=== PATIENT | male | born 1985 | race Caucasian/White ===

== ENCOUNTER 2017-01-24 01:03 | Emergency (ER) | payer BC ==
[~2017-01-24] VITALS: Ht 175.3 cm; Wt 73.6 kg
[~2017-01-24 01:03] MED LIST: BACT800T5 PO; CLIN150 PO
[2017-01-24 01:07] VITALS: BP 123/81; PULSE 65; RESP 14; TEMP 98.2; O2SAT 99
== END 2017-01-24 01:15 | disposition left against medical advice (07) ==
LOC: PHED 01:03
DX: R68.89 Other general symptoms and signs (principal)
CPT/HCPCS: 99281

== ENCOUNTER 2017-02-12 18:21 | Emergency (ER) | payer BC ==
[~2017-02-12] VITALS: Ht 175.3 cm; Wt 74.0 kg
[2017-02-12 18:28] VITALS: BP 121/87; PULSE 82; RESP 17; TEMP 98.8; O2SAT 100
[2017-02-12] MEDS ORDERED: GABA100C4 PO (18:40)
[2017-02-12] MEDS ORDERED: PROZ40CA PO (18:40)
[2017-02-12] MEDS ORDERED: CLIN1CAP6 PO (19:02)
--- NOTE | 2017-02-12 19:02 | PD ---
HPI Chief Complaint: Skin Problem Time Seen by Provider: 18:54 Travel History International Travel<30 days: No Contact w/Intl Traveler<30days: No Traveled to known affect area: No History of Present Illness HPI 32-year-old male presents emergency department for evaluation of left ankle redness and pain. Symptom onset 1 day. Patient denies injury. Patient denies fever, chills, nausea, vomiting. He reports only minimal pain at the site, nonradiating, no exacerbating or alleviating factors, severity 3 out of 10. Patient has a history of IV drug abuse. He did denies injecting at this location. He reports the symptoms are similar to cellulitis which she has had multiple times in the past. [facility] Past Medical History Anxiety: Yes Depression: Yes Cancer: No Cardiovascular Problems: No Diminished Hearing: No Endocrine: No Genitourinary: No Hepatitis: Yes (hep c) Immune Disorder: No Musculoskeletal: No Neurologic: No Psychiatric: Yes Reproductive: No Respiratory: No Tetanus Vaccination: < 5 Years Influenza Vaccination: Yes Past Surgical History Surgical History: No Previous Surgery Social History Alcohol Use: Yes (OCCASIONAL) Tobacco Use: No (dips and smokes occas.) Substance Use: Yes (hx of OPIATES- "[employer]S [employer]S" heroin use ) Allergies-Medications (Allergen,Severity, Reaction): Coded Allergies: No Known Allergies (Verified , 02/12/17) Reported Meds & Prescriptions Reported Meds & Active Scripts Active Reported Gabapentin 100 Mg Cap 100 Mg PO TID Prozac (Fluoxetine HCl) 40 Mg Cap 40 Mg PO DAILY Review of Systems Except as stated in HPI: all other systems reviewed are Neg General / Constitutional: No: Fever Cardiovascular: No: Chest Pain or Discomfort Respiratory: No: Shortness of Breath Gastrointestinal: No: Abdominal Pain Skin: Positive Other (erythema left lateral ankle and lower extremities) Physical Exam Narrative GENERAL: Well-nourished, well-developed patient. SKIN: Focused skin assessment warm/dry. Erythema to the lateral aspect of the left ankle HEAD: Normocephalic. EYES: No scleral icterus. No injection or drainage. NECK: Supple, trachea midline. No JVD or lymphadenopathy. CARDIOVASCULAR: Regular rate and rhythm without murmurs, gallops, or rubs. RESPIRATORY: Breath sounds equal bilaterally. No accessory muscle use. GASTROINTESTINAL: Abdomen soft, non-tender, nondistended. MUSCULOSKELETAL: No cyanosis, or edema. Left ankle: Erythema noted to the lateral aspect. No induration or fluctuance. No evidence of a wound for IV drug use at the site. Mild amount of soft tissue swelling. No lymphangitis. No joint swelling. Painless range of motion of the ankle. BACK: Nontender without obvious deformity. No CVA tenderness. Data Data Last Documented VS Vital Signs Date Time Temp Pulse Resp B/P Pulse Ox O2 Delivery O2 Flow Rate FiO2 02/12/17 18:28 98.8 82 17 121/87 100 MDM Medical Decision Making Medical Screen Exam Complete: Yes Emergency Medical Condition: Yes Differential Diagnosis Cellulitis, early abscess, less likely septic joint Narrative Course 32-year-old male presents emergency department for evaluation of lower extremity redness. Symptom onset 1 day ago. Patient denies fever, chills, nausea, vomiting. Patient denies using the site for IV drug use. The patient is well-appearing, nontoxic. On exam patient has what appears to be cellulitis left lower extremity. There is soft tissue swelling without induration or fluctuation. Clinically the joint does not appear to be involved. There is no effusion or joint swelling. Patient will be put on clindamycin and instructed to follow up with primary doctor. He was instructed to return if he develops fever, chills worsening symptoms. Patient agrees to plan Diagnosis Primary Impression: Cellulitis Qualified Code: L03.116 - Cellulitis of left lower extremity Referrals: Primary Care Physician Additional Instructions: Take the antibiotics as prescribed. Return to emergency department if he developed new or worsening symptoms such as fever, chills, increasing pain, increasing swelling, increasing redness Scripts Clindamycin 300 Mg Qdi376 Mg PO Q6H #40 CAP Ref 0 Prov:Maki Pavon 02/12/17 Disposition: 01 DISCHARGE HOME Condition: Stable Maki Pavon Feb 12, 2017 19:02
== END 2017-02-12 19:15 | disposition home or self-care (01) ==
LOC: PHEFT 18:21
DX: L03.116 Cellulitis of left lower limb (principal); B19.20 Unspecified viral hepatitis C without hepatic coma
CPT/HCPCS: 99283

== ENCOUNTER 2017-04-21 16:41 | Emergency (ER) | payer BC ==
[~2017-04-21] VITALS: Ht 175.3 cm; Wt 76.1 kg
[~2017-04-21 16:41] MED LIST changes: -BACT800T5 PO; -CLIN150 PO; +CLIN1CAP6 PO; +GABA100C4 PO; +PROZ40CA PO
[2017-04-21 16:44] VITALS: BP 138/87; PULSE 89; RESP 16; TEMP 98.7; O2SAT 97
[2017-04-21] MEDS ORDERED: MUPI2OIN TOPICAL (17:15)
--- NOTE | 2017-04-21 17:34 | PD ---
HPI Chief Complaint: Skin Problem Time Seen by Provider: 17:05 Travel History International Travel<30 days: No Contact w/Intl Traveler<30days: No Traveled to known affect area: No History of Present Illness HPI 32-year-old male presents to the emergency room for evaluation of multiple facial skin lesions for the past 2 days. States it started off as small pimples but it will not heal because of the infection. Patient states he has history of this infection and has been treated for at this hospital in the past. He has been applying triple antibiotic ointment as well as home remedies including tumeric spice mixed with milk. He denies fever, chills, nausea, and vomiting. PFSH Past Medical History Anxiety: Yes Depression: Yes Cancer: No Cardiovascular Problems: No Diminished Hearing: No Endocrine: No Gastrointestinal Disorders: Yes Genitourinary: No Hepatitis: Yes (C) Immune Disorder: No Implanted Vascular Access Dvce: No Musculoskeletal: No Neurologic: No Psychiatric: Yes Reproductive: No Respiratory: No Past Surgical History Other Surgery: No Social History Alcohol Use: No Tobacco Use: Yes (Dips tobacco daily ) Substance Use: Yes (Dilaudid, heroin, Suboxone, cocaine ) Allergies-Medications (Allergen,Severity, Reaction): Coded Allergies: No Known Allergies (Verified , 04/21/17) Reported Meds & Prescriptions Reported Meds & Active Scripts Active Mupirocin Topical (Mupirocin) 2 % Oint 1 Applic TOPICAL BID Clindamycin (Clindamycin HCl) 300 Mg Cap 300 Mg PO Q6H Reported Gabapentin 100 Mg Cap 100 Mg PO TID Prozac (Fluoxetine HCl) 40 Mg Cap 40 Mg PO DAILY Review of Systems Except as stated in HPI: all other systems reviewed are Neg Physical Exam Narrative GENERAL: Well-nourished, well-developed male in no acute distress. Afebrile. Ambulatory. SKIN: Focused skin assessment warm/dry. Several noninfected appearing superficial wounds/acne to the face and on the upper lip. The ulceration on the upper lip is about 0.5 cm in diameter and has crusted, honey color discharge. HEAD: Normocephalic. EYES: No scleral icterus. No injection or drainage. ENT: Mucosa pink and moist; no intraoral oral lesions noted. No erythema or exudates. No uvular edema. No uvular, palatal, or tonsillar deviation. Airway patent. Nasal turbinates appear normal without nasal blood, purulent drainage or septal hematoma. NECK: Supple, trachea midline. No JVD or lymphadenopathy. CARDIOVASCULAR: Regular rate and rhythm without murmurs, gallops, or rubs. RESPIRATORY: Breath sounds equal bilaterally. No accessory muscle use. PSYCHIATRIC: No delusional thought processes. No hallucinations. Data Data Last Documented VS Vital Signs Date Time Temp Pulse Resp B/P (MAP) Pulse Ox O2 Delivery O2 Flow Rate FiO2 04/21/17 16:44 98.7 89 16 138/87 (104) 97 MDM Medical Decision Making Medical Screen Exam Complete: Yes Emergency Medical Condition: Yes Medical Record Reviewed: Yes Differential Diagnosis Cellulitis, folliculitis, impetigo, gingivostomatitis, viral infection Narrative Course 32-year-old male presents to the emergency room for evaluation of several lesions to his face for the past 2 days. Patient reports history of infection similar to this in the past. Denies systemic signs of infection. Physical exam reveals multiple superficial abrasions and lacerations to the face consistent with acne or skin picking. The largest is on his upper lip which has crusted, yellow discharge; patient states it looks like that because of tumeric/milk mixture he applied to it last night. There is no surrounding erythema, drainable abscess, or drainage from any of the wounds. No indication for systemic antibiotics. Patient will be treated empirically for impetigo with mupirocin. Told to follow up with a primary care physician or return for worsening symptoms. He understands and agrees to plan. Diagnosis Primary Impression: Impetigo Referrals: Michael Hollins III, MD (PCP) call for appointment Patient Instructions: General Instructions, Cellulitis (ED) Departure Forms: Tests/Procedures Med/Other Pt SpecificInfo: Prescription(s) given Scripts Mupirocin Topical (Mupirocin Topical) 2 % Oint 1 APPLIC TOPICAL BID for Mgmt Bacterial Infection, #22 GM 0 Refills Prov: Jd Rice MD 04/21/17 Disposition: 01 DISCHARGE HOME Condition: Stable Shannon Whitt Apr 21, 2017 17:34
== END 2017-04-21 17:36 | disposition home or self-care (01) ==
LOC: PHEFT 16:41
DX: L01.00 Impetigo, unspecified (principal); B19.20 Unspecified viral hepatitis C without hepatic coma
CPT/HCPCS: 99283

== ENCOUNTER 2017-05-17 02:34 | Emergency (ER) | payer BC ==
[~2017-05-17] VITALS: Ht 175.3 cm; Wt 79.7 kg
[~2017-05-17 02:34] MED LIST changes: +MUPI2OIN TOPICAL
[2017-05-17] MEDS ORDERED: VITA250T3 PO (02:43)
[2017-05-17] MEDS ORDERED: MULTTAB67 PO (02:43)
[2017-05-17 02:44] VITALS: BP 130/78; PULSE 89; RESP 12; TEMP 99.1; O2SAT 95
[2017-05-17] MEDS ORDERED: CLIN1CAP6 PO (03:14)
--- NOTE | 2017-05-17 03:14 | PD ---
HPI Chief Complaint: Skin Problem Time Seen by Provider: 02:56 Travel History International Travel<30 days: No Contact w/Intl Traveler<30days: No Traveled to known affect area: No History of Present Illness HPI This is a 32 year old male with a history of IVDU who presents to the emergency department with 2 days of swelling involving his right lip. Initially had a small cut there and he was seen a couple days ago in the emergency department and diagnosed with impetigo and prescribed Bactroban. He's been applying Bactroban but he feels like his lip swelling is getting much worse. The swelling is moderate severity, constant, and he says that he popped a pimple on his lip today and had a large amount of pus come out of it and ever since that his lip is been more swollen. He denies any fevers or chills. PFSH Past Medical History Anxiety: Yes Depression: Yes Cancer: No Cardiovascular Problems: No Diminished Hearing: No Endocrine: No Gastrointestinal Disorders: Yes Genitourinary: No Hepatitis: Yes (C) Immune Disorder: No Implanted Vascular Access Dvce: No Musculoskeletal: No Neurologic: No Psychiatric: Yes (HEROIN AND COCAINE USE, DEPRESSION) Reproductive: No Respiratory: No Tetanus Vaccination: Unknown Past Surgical History Other Surgery: Yes (THUMB REPAIR IN CHILDHOOD) Social History Alcohol Use: Yes Tobacco Use: Yes (Dips tobacco daily ) Substance Use: Yes (Dilaudid, heroin, Suboxone, cocaine ) Allergies-Medications (Allergen,Severity, Reaction): Coded Allergies: No Known Allergies (Verified , 05/17/17) Reported Meds & Prescriptions Reported Meds & Active Scripts Active Mupirocin Topical (Mupirocin) 2 % Oint 1 Applic TOPICAL BID Clindamycin (Clindamycin HCl) 300 Mg Cap 300 Mg PO Q6H Reported Vitamin C (Ascorbic Acid) 250 Mg Tab 250 Mg PO DAILY Multiple Vitamin 1 Tab 1 Tab PO DAILY Gabapentin 100 Mg Cap 100 Mg PO TID Prozac (Fluoxetine HCl) 40 Mg Cap 40 Mg PO DAILY Review of Systems Except as stated in HPI: all other systems reviewed are Neg Physical Exam Narrative GENERAL:Well appearing, no acute distress SKIN: Local edema of the right lip with no obvious fluctuance, some desquamation of the mucous membrane along the right lip with no discharge. HEAD: Atraumatic. Normocephalic. EYES: Pupils equal and round. No injection or drainage. ENT: Moist mucous membranes NECK: Trachea midline. CARDIOVASCULAR: Regular rate and rhythm. No murmur appreciated. RESPIRATORY: Clear to auscultation. Breath sounds equal bilaterally. GASTROINTESTINAL: Abdomen soft, non-tender, nondistended. MUSCULOSKELETAL: No obvious deformities. NEUROLOGICAL: Awake and alert. No obvious cranial nerve deficits. Moving all extremities. PSYCHIATRIC: Appropriate mood and affect; insight and judgment normal. Data Data Last Documented VS Vital Signs Date Time Temp Pulse Resp B/P (MAP) Pulse Ox O2 Delivery O2 Flow Rate FiO2 05/17/17 02:44 99.1 89 12 130/78 (95) 95 Orders Orders Clindamycin Inj (Cleocin Inj) (05/17/17 03:15) MDM Medical Decision Making Medical Screen Exam Complete: Yes Emergency Medical Condition: Yes Differential Diagnosis Cellulitis, allergic reaction, abscess Narrative Course This is a 32-year-old male who presents to the emergency department with swelling along his right lip. Patient appears to have cellulitis which is fairly localized and doesn't extend into the other parts of the face. He has no fever and otherwise his vital signs are reassuring. Patient was given a dose of IM clindamycin and will be discharged on oral clindamycin. He was encouraged to continue using his Bactroban topically and to apply a warm washcloth on the lip in the case that he does have an underlying small abscess. Diagnosis Primary Impression: Cellulitis Qualified Codes: K12.2 - Cellulitis and abscess of mouth Patient Instructions: General Instructions Additional Instructions: If you develop fever, increasing redness, warmth, or spreading of your infection , or severe pain return to the emergency department immediately as you may require antibiotics through your IV. Complete your course of antibiotics as prescribed. Med/Other Pt SpecificInfo: Prescription(s) given Scripts Clindamycin (Clindamycin) 300 Mg Cap 300 MG PO TID for Infection, #21 CAP 0 Refills Prov: Geovanna White MD 05/17/17 Disposition: 01 DISCHARGE HOME Condition: Stable Geovanan White MD May 17, 2017 03:14
[2017-05-17] MEDS ORDERED: CLINDAMYCIN PHOS 600 MG/4 ML VIAL IM ONE (03:15)
[2017-05-17 03:51] VITALS: BP 130/78
[2017-05-18] MEDS ORDERED: GABA600T PO (21:42)
[2017-05-18] MEDS ORDERED: BACT800T5 PO (22:43)
[2017-05-18] MEDS ORDERED: DOXY100C PO (22:43)
== END 2017-05-17 03:53 | disposition home or self-care (01) ==
LOC: PHED 02:34
DX: K12.2 Cellulitis and abscess of mouth (principal)
CPT/HCPCS: 96372

== ENCOUNTER 2017-05-18 21:16 | Emergency (ER) | payer BC, MEDICARE ==
[~2017-05-18 21:16] MED LIST changes: +MULTTAB67 PO; +VITA250T3 PO
[2017-05-18 21:23] VITALS: BP 122/81; PULSE 94; RESP 15; TEMP 99.2; O2SAT 99
[2017-05-18] MEDS ORDERED: GABA600T PO (21:42)
--- NOTE | 2017-05-18 21:54 | PD ---
HPI Chief Complaint: Laceration/Skin Injury Time Seen by Provider: 21:35 Travel History International Travel<30 days: No Contact w/Intl Traveler<30days: No Traveled to known affect area: No History of Present Illness HPI 32-year-old male with history of hepatitis C, IV drug abuse, presents for evaluation of lip infection. He reports that the past several days he has had upper lip swelling, pain, throbbing, worse with palpation. Denies any fevers or chills. Reports that it started as a small "hanna" and has grown larger and more painful since then. He was seen at [facility] yesterday, prescribed clindamycin which she has been using but he says that his symptoms have worsened which prompted evaluation. He does report that for the past month he has been using some clindamycin on a regular basis because he had a similar infection at the beginning of April. He has had similar facial infections in the past. He has no known history of oral herpes simplex. He reports that he last used crack and heroine 2 days ago. He has no other complaints at this time. [facility] Past Medical History Anxiety: Yes Depression: Yes Cancer: No Cardiovascular Problems: No Diminished Hearing: No Endocrine: No Gastrointestinal Disorders: Yes Genitourinary: No Hepatitis: Yes (C) Immune Disorder: No Implanted Vascular Access Dvce: No Musculoskeletal: No Neurologic: No Psychiatric: Yes (HEROIN AND COCAINE USE, DEPRESSION) Reproductive: No Respiratory: No Tetanus Vaccination: Unknown Influenza Vaccination: No ?: Not Past Surgical History Other Surgery: Yes (THUMB REPAIR IN CHILDHOOD) Social History Alcohol Use: No Tobacco Use: Yes (Dips tobacco daily ) Substance Use: Yes (Dilaudid, heroin, Suboxone, cocaine ) Allergies-Medications (Allergen,Severity, Reaction): Coded Allergies: No Known Allergies (Verified , 05/18/17) Reported Meds & Prescriptions Reported Meds & Active Scripts Active Clindamycin (Clindamycin HCl) 300 Mg Cap 300 Mg PO TID Mupirocin Topical (Mupirocin) 2 % Oint 1 Applic TOPICAL BID Reported Gabapentin 600 Mg Tab 600 Mg PO TID Vitamin C (Ascorbic Acid) 250 Mg Tab 250 Mg PO DAILY Multiple Vitamin 1 Tab 1 Tab PO DAILY Prozac (Fluoxetine HCl) 40 Mg Cap 40 Mg PO DAILY Review of Systems Except as stated in HPI: all other systems reviewed are Neg Physical Exam Narrative GENERAL: Well-nourished male in no acute distress SKIN: Warm and dry. Induration, desquamation, honey-colored crusting, erythema and induration of the upper lip, less so on the lower lip. No discrete vesicles noted. No fluctuance. Palpation of the upper lip expresses some bloody drainage. A wound culture was performed. HEAD: Atraumatic. Normocephalic. EYES: Pupils equal and round. No scleral icterus. No injection or drainage. ENT: No nasal bleeding or discharge. Mucous membranes pink and moist. NECK: Trachea midline. No JVD. CARDIOVASCULAR: Regular rate and rhythm. No murmur appreciated. RESPIRATORY: No accessory muscle use. Clear to auscultation. Breath sounds equal bilaterally. GASTROINTESTINAL: Abdomen soft, non-tender, nondistended. Hepatic and splenic margins not palpable. NEUROLOGICAL: Awake and alert. No obvious cranial nerve deficits. Motor grossly within normal limits. Normal speech. Data Data Last Documented VS Vital Signs Date Time Temp Pulse Resp B/P (MAP) Pulse Ox O2 Delivery O2 Flow Rate FiO2 05/18/17 21:23 99.2 94 15 122/81 (95) 99 Orders Orders Complete Blood Count With Diff (05/18/17 21:37) Basic Metabolic Panel (Bmp) (05/18/17 21:37) Blood Culture (05/18/17 21:37) Iv Access Insert/Monitor (05/18/17 21:37) Herpes Simplex Virus Culture (05/18/17 21:46) Wound Culture And Gram Stain (05/18/17 21:46) Doxycycline (Vibramycin) (05/18/17 22:45) Sulfamet-Trimeth Ds 800-160 Mg (Bactrim (05/18/17 22:45) Labs Laboratory Tests Test 05/18/17 22:02 White Blood Count 11.1 TH/MM3 Red Blood Count 4.26 MIL/MM3 Hemoglobin 12.5 GM/DL Hematocrit 35.5 % Mean Corpuscular Volume 83.3 FL Mean Corpuscular Hemoglobin 29.3 PG Mean Corpuscular Hemoglobin Concent 35.2 % Red Cell Distribution Width 12.8 % Platelet Count 234 TH/MM3 Mean Platelet Volume 7.9 FL Neutrophils (%) (Auto) 68.9 % Lymphocytes (%) (Auto) 17.4 % Monocytes (%) (Auto) 8.6 % Eosinophils (%) (Auto) 1.8 % Basophils (%) (Auto) 3.3 % Neutrophils # (Auto) 7.6 TH/MM3 Lymphocytes # (Auto) 1.9 TH/MM3 Monocytes # (Auto) 1.0 TH/MM3 Eosinophils # (Auto) 0.2 TH/MM3 Basophils # (Auto) 0.4 TH/MM3 CBC Comment DIFF FINAL Differential Comment Blood Urea Nitrogen 15 MG/DL Creatinine 0.77 MG/DL Random Glucose 110 MG/DL Calcium Level 8.5 MG/DL Sodium Level 134 MEQ/L Potassium Level 4.0 MEQ/L Chloride Level 99 MEQ/L Carbon Dioxide Level 29.3 MEQ/L Anion Gap 6 MEQ/L Estimat Glomerular Filtration Rate 117 ML/MIN MDM Medical Decision Making Medical Screen Exam Complete: Yes Emergency Medical Condition: Yes Medical Record Reviewed: Yes Differential Diagnosis Cellulitis failed outpatient therapy, impetigo, herpes simplex, abscess Narrative Course This is a patient who reports that for the past month he has been taking clindamycin for a upper lip infection. Initially seen here in April 19 and diagnosed with impetigo, he reports that he had left over clindamycin which she has been using. Symptoms mostly resolved but over the past few days he reports that a hanna forming in his upper lip any squeezed at it and picked at it and now he has increased swelling of the upper lip. He was prescribed clindamycin again yesterday and symptoms have worsened since then. A wound culture was performed. His examination is most consistent with cellulitis and impetigo of the upper lip. He has no documented history of herpes simplex and there are no discrete vesicles but we will attempt to send a herpes simplex virus culture as well. The patient's lab work is been reviewed and found to be reassuring. At this point in time, pending wound culture results, the plan of the to discontinue the clindamycin and start him on doxycycline and Bactrim empirically. He is attempting to get an appointment with his previous infectious disease physician Dr. Bowman for Saturday or Saturday of this upcoming week. Wound culture results would likely be back by then. Discussed the importance of returning for any new or worsening symptoms. Also recommended outpatient HIV testing given his history of IV drug abuse and recurrent infections. Diagnosis Primary Impression: Facial cellulitis Additional Impression: Impetigo Additional Instructions: Medication as prescribed. Quit taking the clindamycin. Wash the area with warm soap and water daily basis. Avoid squeezing or poking at the skin. Follow -up with Dr. Bowman as discussed. Return for any acutely new or worsening symptoms such as worsening swelling, fevers or chills. Med/Other Pt SpecificInfo: Prescription(s) given Scripts Doxycycline Hyclate (Doxycycline Hyclate) 100 Mg Cap 100 MG PO BID for Infection, #20 CAP 0 Refills Prov: Danis Reeves MD 05/18/17 Sulfamethoxazole-Trimethoprim (Bactrim DS) 800-160 Mg Tab 1 TAB PO BID for Infection, #20 TAB 0 Refills Prov: Danis Reeves MD 05/18/17 Disposition: 01 DISCHARGE HOME Condition: Stable Roberth Parekh May 18, 2017 21:54
[2017-05-18 22:21] LABS: AUTOMATED NEUTROPHIL # 7.6 TH/MM3 (1.8-7.7); BASOPHIL # 0.4 TH/MM3 (0-0.2); BASOPHIL % 3.3 % (0.0-2.0); EOSINOPHIL # 0.2 TH/MM3 (0-0.4); EOSINOPHIL % 1.8 % (0.0-4.0); HEMATOCRIT 35.5 % (39.0-51.0); LYMPH % 17.4 % (9.0-44.0); LYMPHOCYTE # 1.9 TH/MM3 (1.0-4.8); MEAN CELL VOLUME 83.3 FL (80.0-100.0); MEAN CORPUSCULAR HEMOGLOBIN 29.3 PG (27.0-34.0); MEAN CORPUSCULAR HGB CONC 35.2 % (32.0-36.0); MONO % 8.6 % (0.0-8.0); NEUT % 68.9 % (16.0-70.0); PLATELET COUNT 234 TH/MM3 (150-450); RED BLOOD COUNT 4.26 MIL/MM3 (4.50-5.90); RED CELL DISTRIBUTION WIDTH 12.8 % (11.6-17.2); WHITE BLOOD COUNT 11.1 TH/MM3 (4.0-11.0)
[2017-05-18 22:32] LABS: HEMO FLAGS DIFF FINAL
[2017-05-18 22:35] LABS: BICARBONATE 29.3 MEQ/L (21.0-32.0)
[2017-05-18] MEDS ORDERED: BACT800T5 PO (22:43)
[2017-05-18] MEDS ORDERED: DOXY100C PO (22:43)
[2017-05-18] MEDS ORDERED: SULFAMETHOXAZOLE-TRIMETHOPRIM DS 800-160 MG TAB PO ONE (22:45)
[2017-05-18] MEDS ORDERED: DOXYCYCLINE HYCLATE 100 MG CAP PO ONE (22:45)
== END 2017-05-18 23:04 | disposition home or self-care (01) ==
LOC: PHEFT 21:16
DX: L03.211 Cellulitis of face (principal); L01.00 Impetigo, unspecified; K13.0 Diseases of lips; Z72.0 Tobacco use; Z86.59 Personal history of other mental and behavioral disorders; Z87.19 Personal history of other diseases of the digestive system; Z86.19 Personal history of other infectious and parasitic diseases
CPT/HCPCS: 80048; 85025; 86403; 87040; 87070; 87205; 87255; 99284

== ENCOUNTER 2017-07-20 21:31 | Emergency (ER) | payer MEDICARE ==
[~2017-07-20 21:31] MED LIST changes: +BACT800T5 PO; -CLIN1CAP6 PO; +CLIN300C5 PO; +DOXY100C PO; -GABA100C4 PO; +GABA600T PO
[2017-07-20 21:44] VITALS: BP 127/78; PULSE 93; RESP 20; TEMP 98.6; O2SAT 98
--- NOTE | 2017-07-20 22:58 | PD ---
HPI Chief Complaint: Skin Problem Time Seen by Provider: 22:44 Travel History International Travel<30 days: No Contact w/Intl Traveler<30days: No Traveled to known affect area: No History of Present Illness HPI The patient is a 32-year-old male who complains of a spotty facial pain and swelling with small infections around the face. He does have a history of hepatitis C and IV drug abuse. His usual each includes heroin and cocaine. He denies any fever. He states that he has not been using for the past few weeks. PFSH Past Medical History Anxiety: Yes Depression: Yes Cancer: No Cardiovascular Problems: No Diminished Hearing: No Endocrine: No Gastrointestinal Disorders: Yes Genitourinary: No Hepatitis: Yes (C) Immune Disorder: No Implanted Vascular Access Dvce: No Musculoskeletal: No Neurologic: No Psychiatric: Yes (HEROIN AND COCAINE USE, DEPRESSION) Reproductive: No Respiratory: No Influenza Vaccination: Yes Past Surgical History Other Surgery: Yes (THUMB REPAIR IN CHILDHOOD) Social History Alcohol Use: No Tobacco Use: Yes (Dips tobacco daily ) Substance Use: Yes (Dilaudid, heroin, Suboxone, cocaine, Meth (clean for one month)) Allergies-Medications (Allergen,Severity, Reaction): Coded Allergies: No Known Allergies (Verified Adverse Reaction, Unknown, 07/20/17) Reported Meds & Prescriptions Reported Meds & Active Scripts Active Reported Prozac (Fluoxetine HCl) 40 Mg Cap 40 Mg PO DAILY Review of Systems Except as stated in HPI: all other systems reviewed are Neg Physical Exam Narrative GENERAL: Well-nourished, well-developed patient in slight apparent distress with his facial pain. His vital signs are normal. SKIN: Focused skin assessment warm/dry. There are areas of what appears to be staph infection on the face, erythematous patches of mild cellulitis. The patient states in the past these have progressed and gotten worse. The patient has what appears to be fairly recent needle tracks, mostly on the left forearm. None of these appear infected. HEAD: Normocephalic. EYES: No scleral icterus. No injection or drainage. NECK: Supple, trachea midline. No JVD or lymphadenopathy. CARDIOVASCULAR: Regular rate and rhythm without murmurs, gallops, or rubs. RESPIRATORY: Breath sounds equal bilaterally. No accessory muscle use. GASTROINTESTINAL: Abdomen soft, non-tender, nondistended. MUSCULOSKELETAL: No cyanosis, or edema. BACK: Nontender without obvious deformity. No CVA tenderness. DENTAL: No loose or chipped teeth. No malocclusion. No dental tenderness are infection is noted. Data Data Last Documented VS Vital Signs Date Time Temp Pulse Resp B/P (MAP) Pulse Ox O2 Delivery O2 Flow Rate FiO2 07/20/17 21:44 98.6 93 20 127/78 (94) 98 MDM Medical Decision Making Medical Screen Exam Complete: Yes Emergency Medical Condition: Yes Medical Record Reviewed: Yes Interpretation(s) The patient appears to have a facial cellulitis. He also has a history of IV drug abuse. Plan: The past Bactrim DS and doxycycline have worked for this patient and we will prescribe this. Differential Diagnosis Cellulitis, dental infection, abscess face Narrative Course The patient appears to have an early staph cellulitis. Diagnosis Primary Impression: Cellulitis due to Staphylococcus Additional Impression: IV drug abuse Additional Instructions: Both antibiotics are taken one tablet twice daily for 10 days. Follow-up with your primary care physician on this. If worse, you may need to return to emergency department. Med/Other Pt SpecificInfo: Prescription(s) given Disposition: 01 DISCHARGE HOME Condition: Stable Abdiaziz Tejeda MD Jul 20, 2017 22:58
[2017-07-20] MEDS ORDERED: SULFAMETHOXAZOLE-TRIMETHOPRIM DS 800-160 MG TAB PO ONE (23:00)
[2017-07-20] MEDS ORDERED: DOXYCYCLINE HYCLATE 100 MG CAP PO ONE (23:00)
[2017-07-20] MEDS ORDERED: DOXY100C PO (23:30)
[2017-07-20] MEDS ORDERED: BACT800T5 PO (23:30)
== END 2017-07-20 23:42 | disposition home or self-care (01) ==
LOC: PHED 21:31 → PHEFT 23:42
DX: L03.211 Cellulitis of face (principal); B95.8 Unspecified staphylococcus as the cause of diseases classified elsewhere; B19.20 Unspecified viral hepatitis C without hepatic coma; F19.10 Other psychoactive substance abuse, uncomplicated
CPT/HCPCS: 99284

== ENCOUNTER 2017-07-23 22:35 | Emergency (ER) | payer MEDICARE ==
[~2017-07-23] VITALS: Ht 172.7 cm; Wt 82.0 kg
[~2017-07-23 22:35] MED LIST changes: -CLIN300C5 PO; -GABA600T PO; -MULTTAB67 PO; -MUPI2OIN TOPICAL; -VITA250T3 PO
[2017-07-23 22:44] VITALS: BP 129/63; PULSE 92; RESP 14; TEMP 99.1; O2SAT 96
--- NOTE | 2017-07-24 00:01 | PD ---
HPI Chief Complaint: Edema Time Seen by Provider: 23:45 Travel History International Travel<30 days: No Contact w/Intl Traveler<30days: No Traveled to known affect area: No History of Present Illness HPI The patient is a 32-year-old male, recent IV drug abuser who states he's been clean for weeks now who was treated for facial cellulitis on the second of this month. He now has swelling in both feet and some slight redness on both feet. He apparently has not been elevating his legs. He denies any fever. He is on Bactrim and doxycycline. He has 7 days left on the antibiotics. He is not currently employed. PFSH Past Medical History Anxiety: Yes Depression: Yes Cancer: No Cardiovascular Problems: No Diminished Hearing: No Endocrine: No Gastrointestinal Disorders: Yes Genitourinary: No Hepatitis: Yes (C) Immune Disorder: No Implanted Vascular Access Dvce: No Musculoskeletal: No Neurologic: No Psychiatric: Yes (HEROIN AND COCAINE USE, DEPRESSION) Reproductive: No Respiratory: No Tetanus Vaccination: < 5 Years Influenza Vaccination: Yes Past Surgical History Other Surgery: Yes (THUMB REPAIR IN CHILDHOOD) Social History Alcohol Use: Yes (RARELY) Tobacco Use: Yes (Dips tobacco daily ) Substance Use: Yes (Dilaudid, heroin, Suboxone, cocaine, Meth (clean for one month)) Allergies-Medications (Allergen,Severity, Reaction): Coded Allergies: No Known Allergies (Verified Adverse Reaction, Unknown, 07/23/17) Reported Meds & Prescriptions Reported Meds & Active Scripts Active Doxycycline Hyclate 100 Mg Cap 100 Mg PO BID Bactrim DS (Sulfamethoxazole-Trimethoprim) 800-160 Mg Tab 1 Tab PO BID Reported Prozac (Fluoxetine HCl) 40 Mg Cap 40 Mg PO DAILY Review of Systems Except as stated in HPI: all other systems reviewed are Neg Physical Exam Narrative GENERAL: Well-nourished, well-developed patient in minimal apparent distress with his bilateral leg swelling. His vital signs are normal. SKIN: Focused skin assessment warm/dry. There is some slight erythema near the right ankle and left ankle medially, this is very minimal cellulitis. HEAD: Normocephalic. EYES: No scleral icterus. No injection or drainage. NECK: Supple, trachea midline. No JVD or lymphadenopathy. CARDIOVASCULAR: Regular rate and rhythm without murmurs, gallops, or rubs. RESPIRATORY: Breath sounds equal bilaterally. No accessory muscle use. GASTROINTESTINAL: Abdomen soft, non-tender, nondistended. MUSCULOSKELETAL: No cyanosis, the patient does have +3 bilateral pitting edema of the lower extremities. No calf vein tenderness present and no cord is palpated in either calf. BACK: Nontender without obvious deformity. No CVA tenderness. Data Data Last Documented VS Vital Signs Date Time Temp Pulse Resp B/P (MAP) Pulse Ox O2 Delivery O2 Flow Rate FiO2 07/23/17 22:44 99.1 92 14 129/63 (85) 96 MDM Medical Decision Making Medical Screen Exam Complete: Yes Emergency Medical Condition: Yes Medical Record Reviewed: Yes Differential Diagnosis Cellulitis feet, DVT-unlikely, extremity edema Narrative Course I believe the patient when he says these been clean for weeks. He went to [place] to get off of drugs in a program up there. He has not been elevating his legs. He came in last time for facial cellulitis and now he appears to have some slight cellulitis of both legs along with edema. He needs to elevate his legs above his heart. It is possible for him to elevate his legs above his heart during the daytime since he does not work. He will continue the antibiotic along with elevation. Diagnosis Primary Impression: Lower extremity cellulitis Additional Impression: Lower extremity edema Additional Instructions: As we discussed, elevate your legs above your heart, this may initially take all day long. This is particularly important at night. Your feet and lower leg should be above the level of your heart. Up with a primary care physician. If not better, or worse, you are certainly welcome to return to emergency department. Med/Other Pt SpecificInfo: No Change to Meds Disposition: 01 DISCHARGE HOME Condition: Stable Abdiaziz Tejeda MD Jul 24, 2017 00:01
== END 2017-07-24 00:20 | disposition home or self-care (01) ==
LOC: PHED 22:35
DX: L03.115 Cellulitis of right lower limb (principal); L03.116 Cellulitis of left lower limb
CPT/HCPCS: 99282

== ENCOUNTER 2017-09-24 19:35 | Emergency (ER) | payer SELFPAY ==
[~2017-09-24] VITALS: Ht 175.3 cm; Wt 79.4 kg
[2017-09-24 19:40] VITALS: BP 151/93; PULSE 88; RESP 16; TEMP 99.4; O2SAT 95
--- NOTE | 2017-09-24 20:18 | PD ---
HPI . Facial sores. Chief Complaint: Skin Problem Time Seen by Provider: 19:58 Travel History International Travel<30 days: No Contact w/Intl Traveler<30days: No Traveled to known affect area: No History of Present Illness HPI Patient is a 32 year old male with a past history significant for heroin and crack cocaine abuse who presents with complaints of facial sores predominantly around his lips. Patient reports that this all roughly began 3 weeks ago where he went to another hospital and was discharged with a diagnosis of cellulitis and sent on his way with prescriptions for Bactrim & Doxycycline. He saw results from the medication but when he ran out, was unable to get more medications, and noted the sores starting to flare up. He denies any facial pain but reports an annoyance and discomfort with the oily pus released from picking at the sores. The patient reports picking at the sores aggravates them while seeing no relieving factors. Patient reports when asked a history of heroin and crack cocaine abuse, with the most recent use being last week. Patient primarily injects heroin using whatever area of access he can find. Patient denies any signs of fever, facial pain, jaw pain, difficulty swallowing , or chest pain. PFSH Past Medical History Anxiety: Yes Depression: Yes Cancer: No Cardiovascular Problems: No Diminished Hearing: No Endocrine: No Gastrointestinal Disorders: Yes Genitourinary: No Hepatitis: Yes (C) Immune Disorder: No Implanted Vascular Access Dvce: No Medical other: Yes (CELLULITIS) Musculoskeletal: No Neurologic: No Psychiatric: Yes (HEROIN AND COCAINE USE, DEPRESSION) Reproductive: No Respiratory: No Past Surgical History Other Surgery: Yes (THUMB REPAIR IN CHILDHOOD) Social History Alcohol Use: Yes (DENIES) Tobacco Use: Yes (DIPS TOBACCO-QUIT 5 DAYS AGO) Substance Use: Yes (HEROIN 1 WEEK AGO-IS ON SUBOXONE) Allergies-Medications (Allergen,Severity, Reaction): Coded Allergies: No Known Allergies (Unverified , 09/24/17) Reported Meds & Prescriptions Reported Meds & Active Scripts Active Bactroban Nasal Oint (Mupirocin Nasal Oint) 2% Oint 1 Applic EACH NARE BID 5 Days For 5 days. Clindamycin (Clindamycin HCl) 300 Mg Cap 600 Mg PO Q8H 10 Days Review of Systems Except as stated in HPI: all other systems reviewed are Neg General / Constitutional: No: Fever Eyes: No: Pain HENT: No: Headaches, Congestion, Nosebleed Cardiovascular: No: Chest Pain or Discomfort Respiratory: No: Shortness of Breath Physical Exam Narrative GENERAL: Awake and alert and in no acute distress. SKIN: Warm and dry. has a total of 5 lesions around his lips, 3 on the top and 2 on the bottom. All 5 are scabbed over. Surrounding skin is not red or hot. HEAD: Normocephalic/atraumatic. EYES: Pupils are equal. Extraocular movements are intact. Distally NECK: Normal range of motion. RESPIRATORY: Nonlabored respirations. MUSCULOSKELETAL: Atraumatic. NEUROLOGICAL: Nonfocal. PSYCHIATRIC: Appropriate mood and affect. Data Data Last Documented VS Vital Signs Date Time Temp Pulse Resp B/P (MAP) Pulse Ox O2 Delivery O2 Flow Rate FiO2 09/24/17 20:04 20 09/24/17 19:40 99.4 88 151/93 (112) 95 Orders Orders Ed Discharge Order (09/24/17 20:25) MDM Medical Decision Making Medical Screen Exam Complete: Yes Emergency Medical Condition: Yes Differential Diagnosis My differential diagnosis includes but is not limited to localized wound infection, cellulitis, abscess Narrative Course This patient presents with recurrent sores around his lips. He was treated here in early July for the same thing and was reportedly treated at an outside hospital 3 weeks ago for the same thing. He does well while on antibiotics but her when the antibiotics are finished. I will treat him with clindamycin as well as intranasal Bactroban. Diagnosis Primary Impression: Staph skin infection Scripts Mupirocin Nasal Oint (Bactroban Nasal Oint) 2% Oint 1 APPLIC EACH NARE BID for Mgmt Bacterial Infection for 5 Days, #1 TUBE 0 Refills For 5 days. Prov: Smiley Samayoa MD 09/24/17 Clindamycin (Clindamycin) 300 Mg Cap 600 MG PO Q8H for Infection for 10 Days, #60 CAP 0 Refills Prov: Smiley Samayoa MD 09/24/17 Disposition: 01 DISCHARGE HOME Condition: Stable Smiley Samayoa MD Sep 24, 2017 20:18
[2017-09-24] MEDS ORDERED: BACTOIN EACH NARE (20:24)
[2017-09-24] MEDS ORDERED: CLIN300C5 PO (20:24)
== END 2017-09-24 21:00 | disposition home or self-care (01) ==
LOC: PHED 19:35
DX: L08.89 Other specified local infections of the skin and subcutaneous tissue (principal); B95.8 Unspecified staphylococcus as the cause of diseases classified elsewhere; F32.9 Major depressive disorder, single episode, unspecified; B19.20 Unspecified viral hepatitis C without hepatic coma; Z72.0 Tobacco use
CPT/HCPCS: 99283

== ENCOUNTER 2017-11-07 19:01 | Emergency (ER) | payer SELFPAY ==
[~2017-11-07] VITALS: Ht 175.3 cm; Wt 79.9 kg
[~2017-11-07 19:01] MED LIST changes: -BACT800T5 PO; +BACTOIN EACH NARE; +CLIN300C5 PO; -DOXY100C PO; -PROZ40CA PO
[2017-11-07 19:41] VITALS: BP 110/62; PULSE 61; RESP 18; TEMP 98.4; O2SAT 98
[2017-11-07] MEDS ORDERED: IBUP1TAB7 PO (19:49)
--- NOTE | 2017-11-07 19:53 | PD ---
HPI Chief Complaint: Wound/Suture/Staple Re-Check Time Seen by Provider: 19:52 Travel History International Travel<30 days: No Contact w/Intl Traveler<30days: No Traveled to known affect area: No History of Present Illness HPI 32-year-old male presents to the emergency department requesting staple removal from the top of his left scalp. They have been in place for 10 days. Denies drainage, erythema to the wound site. Denies fever, vomiting. Was not prescribed antibiotics. Has been taking ibuprofen for symptom management. Symptoms are mild in severity. No known aggravating or relieving factors. Dr. Michael Hollins is primary care provider. No known allergies. Denies significant past medical history. Has no other medical complaints. No other modifying factors or associated signs and symptoms. PFSH Past Medical History Anxiety: Yes Depression: Yes Cancer: No Cardiovascular Problems: No Diminished Hearing: No Endocrine: No Gastrointestinal Disorders: Yes Genitourinary: No Hepatitis: Yes (C) Immune Disorder: No Implanted Vascular Access Dvce: No Musculoskeletal: No Neurologic: No Psychiatric: Yes (HEROIN AND COCAINE USE, DEPRESSION) Reproductive: No Respiratory: No Past Surgical History Other Surgery: Yes (THUMB REPAIR IN CHILDHOOD) Social History Alcohol Use: Yes (DENIES) Tobacco Use: Yes (DIPS TOBACCO-QUIT 5 DAYS AGO) Substance Use: Yes (HEROIN 1 WEEK AGO-IS ON SUBOXONE) Allergies-Medications (Allergen,Severity, Reaction): Coded Allergies: No Known Allergies (Unverified , 11/07/17) Reported Meds & Prescriptions Reported Meds & Active Scripts Active Reported Ibuprofen 800 Mg Tab 800 Mg PO Q8H Review of Systems Except as stated in HPI: all other systems reviewed are Neg Physical Exam Narrative GENERAL: Well-nourished, well-developed male patient, in no acute distress SKIN: Warm and dry. Top left scalp with wound that is well approximated with umesh intact; without erythema, edema, drainage. No signs of infection. HEAD: Atraumatic. Normocephalic. EYES: Pupils equal and round. No scleral icterus. No injection or drainage. ENT: Mucosa pink and moist. Airway patent. NECK: Trachea midline. CARDIOVASCULAR: Regular rate. RESPIRATORY: No accessory muscle use. GASTROINTESTINAL: Flat. MUSCULOSKELETAL: No obvious deformities. No clubbing. No cyanosis. No edema. NEUROLOGICAL: Awake and alert. Oriented 3. No obvious cranial nerve deficits. Motor grossly within normal limits. Normal speech. PSYCHIATRIC: Appropriate mood and affect; insight and judgment normal. Data Data Last Documented VS Vital Signs Date Time Temp Pulse Resp B/P (MAP) Pulse Ox O2 Delivery O2 Flow Rate FiO2 11/07/17 19:41 98.4 61 18 110/62 (78) 98 Orders Orders Ed Discharge Order (11/07/17 19:55) MDM Medical Decision Making Medical Screen Exam Complete: Yes Emergency Medical Condition: Yes Medical Record Reviewed: Yes Differential Diagnosis Staple removal, wound recheck, medical clearance Narrative Course 32-year-old male presents for staple removal from his scalp. They have been there for 10 days. No signs of infection. Umesh removed. Patient tolerated well. Instructed patient to follow up with primary care provider. Patient verbalizes understanding and agreement with treatment plan. Patient is medically cleared and stable for discharge. Discussed reasons to return to the emergency department. Patient agrees with treatment plan. The patients vital signs are stable and the patient is stable for outpatient follow-up and treatment. Patient discharged home, stable and in no acute distress. Diagnosis Primary Impression: Encounter for staple removal Referrals: Primary Care Physician Patient Instructions: Acute Wound Care (DC), General Instructions Additional Instructions: Keep area clean and dry Vaseline or Aquaphor as directed and as needed for continued wound care Ibuprofen or Tylenol as directed and as needed for pain Follow-up with primary care provider Return to the emergency department immediately with worsening of symptoms Med/Other Pt SpecificInfo: No Change to Meds, No Meds Exist/No RX given Disposition: 01 DISCHARGE HOME Condition: Stable Trudi English Nov 07, 2017 19:53
== END 2017-11-07 20:00 | disposition home or self-care (01) ==
LOC: PHEFT 19:01
DX: S01.01XD Laceration without foreign body of scalp, subsequent encounter (principal); Z48.02 Encounter for removal of sutures; Z87.19 Personal history of other diseases of the digestive system; Z86.59 Personal history of other mental and behavioral disorders; Z87.891 Personal history of nicotine dependence; X58.XXXD Exposure to other specified factors, subsequent encounter
CPT/HCPCS: 99282

== ENCOUNTER 2017-12-29 17:06 | Emergency (ER) | payer SELFPAY ==
[~2017-12-29 17:06] MED LIST changes: -BACTOIN EACH NARE; -CLIN300C5 PO; +IBUP1TAB7 PO
[2017-12-29 17:08] VITALS: BP 124/69; PULSE 74; RESP 16; TEMP 98.5; O2SAT 98
--- NOTE | 2017-12-29 17:53 | PD ---
HPI Chief Complaint: Skin Problem Time Seen by Provider: 17:29 Travel History International Travel<30 days: No Contact w/Intl Traveler<30days: No Traveled to known affect area: No History of Present Illness HPI This is a 32-year-old male here with an abscess to his left wrist 2-3 days. No fever chills. Patient has a history of IVDA and reports to injecting heroin last week. He reports he was clean for several years and relapsed recently. He is reporting that he is not currently using. He is adamant that he has no fevers, chills, chest pain, shortness of breath. He has mild tenderness to the dorsal aspect of the wrist. Symptom severity is mild to moderate. No aggravating or alleviating factors. PFSH Past Medical History Anxiety: Yes Depression: Yes Cancer: No Cardiovascular Problems: No Diminished Hearing: No Endocrine: No Gastrointestinal Disorders: Yes Genitourinary: No Hepatitis: Yes (C) Immune Disorder: No Implanted Vascular Access Dvce: No Musculoskeletal: No Neurologic: No Psychiatric: Yes (HEROIN AND COCAINE USE, DEPRESSION) Reproductive: No Respiratory: No Past Surgical History Other Surgery: Yes (THUMB REPAIR IN CHILDHOOD) Social History Alcohol Use: Yes (DENIES) Tobacco Use: Yes (DIPS TOBACCO-QUIT 5 DAYS AGO) Substance Use: Yes (HEROIN 1 WEEK AGO-IS ON SUBOXONE) Allergies-Medications (Allergen,Severity, Reaction): Coded Allergies: No Known Allergies (Unverified , 12/29/17) Reported Meds & Prescriptions Reported Meds & Active Scripts Active Bactrim DS (Sulfamethoxazole-Trimethoprim) 800-160 Mg Tab 1 Tab PO BID Review of Systems Except as stated in HPI: all other systems reviewed are Neg General / Constitutional: No: Fever HENT: No: Headaches Cardiovascular: No: Chest Pain or Discomfort Respiratory: No: Shortness of Breath Gastrointestinal: No: Abdominal Pain Genitourinary: No: Dysuria Musculoskeletal: No: Pain Physical Exam Narrative GENERAL: Alert 32-year-old male SKIN: Warm and dry. HEAD: Normocephalic. EYES: No scleral icterus. No injection or drainage. NECK: Supple CARDIOVASCULAR: Regular rate and rhythm without murmurs, gallops, or rubs. RESPIRATORY: Breath sounds equal bilaterally. No accessory muscle use. GASTROINTESTINAL: Abdomen soft, non-tender, nondistended. MUSCULOSKELETAL: No cyanosis, or edema. LUE: 1CM mildly tender and indurated area to the left wrist dorsal aspect with mild erythema. No fluctuance. No surrounding cellulitis. No lymphangitis. Can freely flex and extend the wrist and all fingers. BACK: Nontender without obvious deformity. No CVA tenderness. Data Data Last Documented VS Vital Signs Date Time Temp Pulse Resp B/P (MAP) Pulse Ox O2 Delivery O2 Flow Rate FiO2 12/29/17 17:08 98.5 74 16 124/69 (87) 98 MDM Medical Decision Making Medical Screen Exam Complete: Yes Emergency Medical Condition: Yes Differential Diagnosis Abscess, cellulitis, lymphangitis Narrative Course 32-year-old male here with early abscess to the left wrist. He is nontoxic appearing. The area is indurated without fluctuance. I do not feel the area is ready to be drained at this time. He will be started on antibiotics and instructed to apply warm compresses to the area and return in 2 days for recheck and possible incision and drainage at that time. He agrees to this plan. Diagnosis Primary Impression: Abscess Referrals: [facility] Additional Instructions: Antibiotics as directed. Continue warm compresses to the area several times per day. Return for recheck in 2 days. Return prior if you develop new or worsening symptoms. Scripts Sulfamethoxazole-Trimethoprim (Bactrim DS) 800-160 Mg Tab 1 TAB PO BID for Infection, #20 TAB 0 Refills Prov: Maki Pavon 12/29/17 Disposition: 01 DISCHARGE HOME Condition: Stable Maki Pavon December 29, 2017 17:53
[2017-12-29] MEDS ORDERED: BACT800T5 PO (17:57)
== END 2017-12-29 18:02 | disposition home or self-care (01) ==
LOC: PHEFT 17:06
DX: L02.414 Cutaneous abscess of left upper limb (principal); F32.9 Major depressive disorder, single episode, unspecified; F41.9 Anxiety disorder, unspecified; B19.20 Unspecified viral hepatitis C without hepatic coma; F11.90 Opioid use, unspecified, uncomplicated; F14.90 Cocaine use, unspecified, uncomplicated; Z87.891 Personal history of nicotine dependence
CPT/HCPCS: 99283